=== PATIENT | male | born 1980 | race Caucasian/White ===

== ENCOUNTER 2022-05-23 16:16 | Emergency (ER) | payer OTHER ==
[~2022-05-23] VITALS: Ht 179.1 cm; Wt 115.4 kg
[2022-05-23 16:22] VITALS: BP 142/90
--- NOTE | 2022-05-23 16:35 | NUR ---
here for cough and sore throat, denies any sob, o2 sat 99% ra, awaits md [place]
--- NOTE | 2022-05-23 17:10 | NUR ---
refused covid and flu tests, aware
[2022-05-23] MEDS ORDERED: PROM118S5 PO (17:34)
[2022-05-23] MEDS ORDERED: LIDO15SO PO (17:34)
[2022-05-23] MEDS ORDERED: IBUP-2213 PO (17:34)
[2022-05-23 17:45] VITALS: BP 142/90
--- NOTE | 2022-05-23 17:45 | NUR ---
Patient discharged with v/s stable. Written and verbal after care instructions given and explained. Patient verbalized understanding. Ambulatory with steady gait. All questions addressed prior to discharge. Advised to follow up with PMD. rx: ibuprofen, lidocaine, promethazine
== END 2022-05-23 17:41 | disposition home or self-care (01) ==
LOC: MED 16:16
DX: J06.9 Acute upper respiratory infection, unspecified (principal)
CPT/HCPCS: 99283

== ENCOUNTER 2023-03-21 07:26 | Emergency (ER) | payer OTHER ==
[~2023-03-21] VITALS: Ht 188 cm; Wt 114.8 kg
[~2023-03-21 07:26] MED LIST: IBUP-2213 PO; LIDO15SO4 PO; PROM118S5 PO
[2023-03-21 07:34] VITALS: BP 153/91; PULSE 84; RESP 18; TEMP 97.8; O2SAT 95
[2023-03-21] MEDS ORDERED: ALUMINUM HYD/MAG/SIMETHICONE 30 ML UDC PO ONE (07:55)
[2023-03-21] MEDS ORDERED: FAMOTIDINE 20 MG TAB PO ONE (07:55)
[2023-03-21 08:19] VITALS: BP 149/89; PULSE 82; RESP 16; TEMP 98.2; O2SAT 95
[2023-03-21 08:34] LABS: BASOPHILS # (AUTO) 0.1 K/uL (0.00-0.22); BASOPHILS % (AUTO) 0.6 % (0.0-2.0); EOSINOPHILS # (AUTO) 0.1 K/uL (0-0.4); EOSINOPHILS % (AUTO) 0.6 % (0.0-4.0); LYMPHOCYTES # (AUTO) 2.9 K/uL (2.0-11.5); LYMPHOCYTES % (AUTO) 24.4 % (20.5-51.1); MEAN CORPUSCULAR HEMOGLOBIN 32 pg (27-31); MEAN CORPUSCULAR HGB CONC 34 g/dL (33-37); MEAN CORPUSCULAR VOLUME 93.7 fL (80-94); MONOCYTES # (AUTO) 0.9 K/uL (0.8-1.0); MONOCYTES % (AUTO) 7.9 % (1.7-9.3); NEUTROPHILS # (AUTO) 7.8 K/uL (1.8-7.7); NEUTROPHILS % (AUTO) 66.5 % (42.2-75.2); PLATELET COUNT (AUTO) 234 K/uL (140-450); RED BLOOD CELL COUNT(AUTO) 4.69 MIL/uL (4.20-6.10); RED CELL DISTRIBUTION WIDTH 12.4 % (11.6-13.7); WHITE BLOOD COUNT (AUTO) 11.7 K/uL (4.8-10.8)
[2023-03-21 08:53] LABS: ANION GAP 13.3 (8-16); CALCIUM 8.6 mg/dL (8.5-10.1); CARBON DIOXIDE 26.8 mmol/L (21-32); POTASSIUM 4.1 mmol/L (3.5-5.1)
[2023-03-21 09:23] LABS: ALANINE AMINOTRANSFERASE 27 U/L (12-78); ALBUMIN 3.5 g/dL (3.4-5.0); ALKALINE PHOSPHATASE 86 U/L (50-136); ASPARTATE AMINOTRANSFERASE 11 U/L (15-37); BILIRUBIN,DIRECT 0.1 mg/dL (0.0-0.3); LIPASE 66 U/L (16-77); TOTAL BILIRUBIN 0.6 mg/dL (0.0-1.0); TOTAL PROTEIN, SERUM 7.3 g/dL (6.4-8.2)
[2023-03-21] MEDS ORDERED: FAMO-90 PO (09:33)
== END 2023-03-21 09:50 | disposition home or self-care (01) ==
LOC: MED 07:26
DX: K29.70 Gastritis, unspecified, without bleeding (principal); Z90.49 Acquired absence of other specified parts of digestive tract; Z79.899 Other long term (current) drug therapy; Z79.1 Long term (current) use of non-steroidal anti-inflammatories (NSAID)
CPT/HCPCS: 36415; 71045; 80048; 80076; 83690; 84484; 85025; 93005; 99285

== ENCOUNTER 2023-04-13 11:00 | Emergency (ER) | payer OTHER ==
[~2023-04-13] VITALS: Ht 179.1 cm; Wt 114.8 kg
[~2023-04-13 11:00] MED LIST changes: +FAMO-90 PO
[2023-04-13 11:10] VITALS: BP 141/101; PULSE 102; RESP 20; TEMP 97.8; O2SAT 100
[2023-04-13] MEDS ORDERED: GUAI5LIQ5 PO (11:18)
[2023-04-13] MEDS ORDERED: NAPR-54 PO (11:18)
[2023-04-13] MEDS ORDERED: DEXAMETHASONE 10 MG/ML VIAL IM ONE (11:20)
[2023-04-13] MEDS ORDERED: DEXAMETHASONE 10 MG/ML VIAL ONE (11:25)
[2023-04-13] MEDS ORDERED: KETOROLAC 30 MG/ML VIAL IM ONE (11:30)
[2023-04-13] MEDS ORDERED: KETOROLAC 30 MG/ML VIAL ONE (11:30)
[2023-04-13] MEDS ORDERED: NAPROXEN 500 MG TAB PO SCH (11:40)
[2023-04-13 12:21] VITALS: BP 132/82; PULSE 88; RESP 16; TEMP 99.2; O2SAT 93
== END 2023-04-13 12:21 | disposition home or self-care (01) ==
LOC: MED 11:00
DX: R05.9 Cough, unspecified (principal); R51.9 Headache, unspecified; J00 Acute nasopharyngitis [common cold]; Z79.899 Other long term (current) drug therapy
CPT/HCPCS: 96372; 99283; J1100; J1885